=== PATIENT | male | born 1960 | race Caucasian/White ===

== ENCOUNTER 2017-07-27 08:54 | Emergency (ER) | payer OTHER ==
[2017-07-27 08:54] VITALS: BP 142/60
[2017-07-27] MEDS ORDERED: MORPHINE SULFATE 4 MG/ML DISP.SYRIN. ONE (08:59)
[2017-07-27] MEDS ORDERED: KETOROLAC 30 MG/ML VIAL. ONE (08:59)
[2017-07-27] MEDS ORDERED: ONDANSETRON PF 4 MG/2 ML VIAL. ONE ×2 (08:59→09:35)
[2017-07-27] MEDS ORDERED: KETOROLAC 30 MG/ML VIAL. IV ONE (09:00)
[2017-07-27] MEDS ORDERED: MORPHINE SULFATE 2 MG/ML DISP.SYRIN. IV ONE (09:00)
[2017-07-27] MEDS ORDERED: ONDANSETRON ODT 4 MG TAB.RAPDIS PO ONE (09:00)
[2017-07-27] MEDS ORDERED: IV NORMAL SALINE 1,000ML 1,000 ML IV ONE ×2 (09:00→11:15)
[2017-07-27 09:16] LABS: BASO # 0.1 x10^3/uL (0.0-0.2); BASO % 1 % (0-3); EOS # 0.1 x10^3/uL (0.0-0.7); EOS % 1 % (0-3); HEMATOCRIT 44.1 % (39.0-53.0); HEMOGLOBIN 15.4 g/dL (13.0-17.5); LYMPH # 2.9 x10^3/uL (1.0-4.8); LYMPH % 33 % (24-48); MEAN CORPUSCULAR HEMOGLOBIN 31 pg (25-35); MEAN CORPUSCULAR HGB CONC 35 g/dL (31-37); MEAN CORPUSCULAR VOLUME 89 fL (79-100); MONO # 0.8 x10^3/uL (0.0-1.1); MONO % 9 % (0-9); NEUT # 4.9 x10^3uL (1.8-7.7); NEUT % 56 % (31-73); PLATELET COUNT 267 x10^3/uL (140-400); RED BLOOD COUNT 4.95 x10^6/uL (4.30-5.70); RED CELL DISTRIBUTION WIDTH 12.7 % (11.5-14.5); WHITE BLOOD COUNT 8.8 x10^3/uL (4.0-11.0)
[2017-07-27 09:30] LABS: ALBUMIN 4.5 g/dL (3.4-5.0); ALBUMIN/GLOBULIN RATIO 1.4 (1.0-1.7); CALCIUM 9.4 mg/dL (8.5-10.1); GFR 77.9; POTASSIUM 3.4 mmol/L (3.5-5.1); TOTAL BILIRUBIN 0.7 mg/dL (0.2-1.0); TOTAL PROTEIN 7.8 g/dL (6.4-8.2)
[2017-07-27] MEDS ORDERED: MORPHINE SULFATE 4 MG/ML DISP.SYRIN. IV ONE ×3 (09:30→12:00)
--- NOTE | 2017-07-27 09:38 | PHYS DOC ---
Adult General Chief Complaint Chief Complaint: FLANK PAIN HPI HPI Patient is a 56 year old M who presents with right-sided flank pain that started approximately 2 hours prior to arrival. Pulse states that his pain has had wave like intense episodes associated with his constant dull pain. His pain initially was in the right flank to the right groin. He describes associated nausea and vomiting. He has no other associated symptoms. He has no known exacerbating or alleviating factors. He has never had similar pain in the past. He has had no abdominal surgeries. Review of Systems Review of Systems Constitutional: Denies fever or chills [] Eyes: Denies change in visual acuity, redness, or eye pain [] HENT: Denies nasal congestion or sore throat [] Respiratory: Denies cough or shortness of breath [] Cardiovascular: No additional information not addressed in HPI [] GI: Negative except history of present illness : Denies dysuria or hematuria [] Musculoskeletal: Denies joint pain [] Integument: Denies rash or skin lesions [] Neurologic: Denies headache, focal weakness or sensory changes [] Endocrine: Denies polyuria or polydipsia [] All other systems were reviewed and found to be within normal limits, except as documented in this note. Family History Family History No pertinent family medical history reported Current Medications Current Medications Current Medications Medications (Trade) Dose Ordered Sig/[facility] Start Time Stop Time Status Last Admin Dose Admin Ketorolac Tromethamine (Toradol) 30 mg 1X ONCE 07/27/17 09:00 07/27/17 09:01 UNV 07/27/17 09:00 30 MG Morphine Sulfate (Morphine 2mg Syringe) 2 mg 1X ONCE 07/27/17 09:00 07/27/17 09:01 UNV 07/27/17 09:00 2 MG Morphine Sulfate (Morphine 4mg Syringe) 2 mg 1X ONCE 07/27/17 09:30 07/27/17 09:31 UNV 07/27/17 09:26 2 MG Ondansetron HCl (Zofran Odt) 4 mg 1X ONCE 07/27/17 09:00 07/27/17 09:01 UNV 07/27/17 09:00 4 MG Ondansetron HCl (Zofran) 4 mg STK-MED ONCE 07/27/17 08:59 07/27/17 09:00 DC Sodium Chloride 1,000 ml @ 1,000 mls/hr 1X ONCE 07/27/17 09:00 07/27/17 09:59 UNV 07/27/17 09:10 1,000 MLS/HR Allergies Allergies Allergies Coded Allergies Type Severity Reaction Last Updated Verified No Known Drug Allergies 07/27/17 No Physical Exam Physical Exam Constitutional: Well developed, well nourished, no acute distress, non-toxic appearance. [] HENT: Normocephalic, atraumatic, Eyes: EOMI, conjunctiva normal, no discharge. [] Neck: Normal range of motion, no tenderness, supple, no stridor. [] Cardiovascular:Heart rate regular rhythm, no murmur [] Lungs & Thorax: Bilateral breath sounds clear to auscultation [] Abdomen: Bowel sounds normal, soft, no masses, no pulsatile masses. [] Right lower quadrant tenderness to palpation Skin: Warm, dry, no erythema, no rash. [] Back: Right flank pain noted Extremities: No tenderness, no cyanosis, no clubbing, ROM intact, no edema. [] Neurologic: Alert and oriented X 3, normal motor function, normal sensory function, no focal deficits noted. [] Psychologic: Affect normal, judgement normal, mood normal. [] Current Patient Data Vital Signs Vital Signs Date Time Temp Pulse Resp B/P (MAP) Pulse Ox O2 Delivery O2 Flow Rate FiO2 07/27/17 08:54 98.0 68 22 100 Room Air Lab Results Laboratory Tests Test 07/27/17 08:59 White Blood Count 8.8 x10^3/uL (4.0-11.0) Red Blood Count 4.95 x10^6/uL (4.30-5.70) Hemoglobin 15.4 g/dL (13.0-17.5) Hematocrit 44.1 % (39.0-53.0) Mean Corpuscular Volume 89 fL (79-100) Mean Corpuscular Hemoglobin 31 pg (25-35) Mean Corpuscular Hemoglobin Concent 35 g/dL (31-37) Red Cell Distribution Width 12.7 % (11.5-14.5) Platelet Count 267 x10^3/uL (140-400) Neutrophils (%) (Auto) 56 % (31-73) Lymphocytes (%) (Auto) 33 % (24-48) Monocytes (%) (Auto) 9 % (0-9) Eosinophils (%) (Auto) 1 % (0-3) Basophils (%) (Auto) 1 % (0-3) Neutrophils # (Auto) 4.9 x10^3uL (1.8-7.7) Lymphocytes # (Auto) 2.9 x10^3/uL (1.0-4.8) Monocytes # (Auto) 0.8 x10^3/uL (0.0-1.1) Eosinophils # (Auto) 0.1 x10^3/uL (0.0-0.7) Basophils # (Auto) 0.1 x10^3/uL (0.0-0.2) Sodium Level 144 mmol/L (136-145) Potassium Level 3.4 mmol/L (3.5-5.1) L Chloride Level 105 mmol/L (98-107) Carbon Dioxide Level 25 mmol/L (21-32) Anion Gap 14 (6-14) Blood Urea Nitrogen 20 mg/dL (8-26) Creatinine 1.0 mg/dL (0.7-1.3) Estimated GFR (Cockcroft-Gault) 77.9 BUN/Creatinine Ratio 20 (6-20) Glucose Level 125 mg/dL (70-99) H Calcium Level 9.4 mg/dL (8.5-10.1) Total Bilirubin 0.7 mg/dL (0.2-1.0) Aspartate Amino Transferase (AST) 28 U/L (15-37) Alanine Aminotransferase (ALT) 36 U/L (16-63) Alkaline Phosphatase 85 U/L (46-116) Total Protein 7.8 g/dL (6.4-8.2) Albumin 4.5 g/dL (3.4-5.0) Albumin/Globulin Ratio 1.4 (1.0-1.7) EKG EKG [] Radiology/Procedures Radiology/Procedures CT abdomen and pelvis without contrast Impressions: 7 mm ureterolith Course & Med Decision Making Course & Med Decision Making Pertinent Labs and Imaging studies reviewed. (See chart for details) Karan was given IV fluids, nausea medicine and pain medication. He was given morphine 2 mg IV 3 over the course of 2 hours. He was also given 1 dose of morphine 4 mg IV. He continued to have moderate pain that came in waves. In between painful episodes he became sleepy and his oxygen saturation declined. He was placed on supplemental oxygen and maintain oxygen saturation greater than 95%. He was transferred in stable condition for further evaluation by urology to the hospital of his choice. Dragon Disclaimer Dragon Disclaimer This electronic medical record was generated, in whole or in part, using a voice recognition dictation system. Departure Departure: Impression: Primary Impression: Ureterolithiasis Disposition: 05 XFER OTHER Condition: STABLE Referrals: PCP,UNKNOWN (PCP) EDWIN PIERCE MD Jul 27, 2017 09:38
[2017-07-27] MEDS ORDERED: ONDANSETRON PF 4 MG/2 ML VIAL. IV ONE (09:45)
--- NOTE | 2017-07-27 10:35 | RAD ---
CT ABDOMEN AND PELVIS WITHOUT IV CONTRAST History: abd/flank pain, nausea, vomiting Comparison: None. Technique: Helical CT of the abdomen and pelvis was performed from the lung bases through the ischial tuberosities. Axial and coronal reconstructions were obtained. Abdomen Findings: The visualized lung bases are clear. Evaluation of visceral organs is limited without intravenous contrast. The liver, spleen, pancreas, gallbladder, and bilateral adrenal glands are normal. 0.7 cm calculus in the mid to distal right ureter results in mild right hydroureteronephrosis. Subcentimeter hypoattenuating renal lesions are too small to characterize but statistically likely represent simple renal cysts. Punctate nonobstructive calculus within the superior pole of the left kidney. Visualized loops of large and small bowel are normal. There is no evidence of bowel obstruction. Appendix appears within normal limits. There is no significant abdominal adenopathy. The abdominal aorta is normal in caliber. Pelvis findings: Left hip prosthesis streak artifact. Mild urinary bladder wall thickening measuring 0.4 cm. Normal size prostate containing calcifications. Suspected right hydrocele. Vasectomy clips. There is no free fluid. There is no significant pelvic or inguinal adenopathy. There is no acute bony abnormality. Left total hip arthroplasty. L5 limbus vertebrae. Mild multilevel degenerative changes of the visualized spine. IMPRESSION: 1. 0.7 cm calculus in the mid to distal right ureter results in mild right hydroureteronephrosis. . 2. Mild urinary bladder wall thickening measuring 0.4 cm may be accentuated by underdistention. Correlation with urinalysis. 3. Suspected right hydrocele, although incompletely visualized. PQRS Compliance Statement: One or more of the following individualized dose reduction techniques were utilized for this examination: 1. Automated exposure control 2. Adjustment of the mA and/or kV according to patient size 3. Use of iterative reconstruction technique
[2017-07-27] MEDS ORDERED: TAMSULOSIN 0.4 MG CAP.ER.24H. PO ONE (10:45)
== END 2017-07-27 12:12 | disposition short-term general hospital (02) ==
LOC: ER 08:54
DX: N13.2 Hydronephrosis with renal and ureteral calculous obstruction (principal)
CPT/HCPCS: 36415; 74176; 80053; 85025; 96361; 96374; 96375; 96376; 99285; J1885; J2270; J2405; Q0162; J7030